=== PATIENT | male | born 1950 | race Caucasian/White ===

== ENCOUNTER 2023-03-03 20:32 | Inpatient (IN) | payer OTHER ==
[~2023-03-03 20:32] MED LIST: Iopamidol-370 76% 500 ML MDV (1 ML CHARGE) ONE
[2023-03-03] MEDS ORDERED: CEFAZOLIN 2 GM VIAL ONE (20:40)
[2023-03-03] MEDS ORDERED: Boostrix 0.5 ML (Tdap) VIAL (>/=7 yrs of age) ONE (20:40)
[2023-03-03] MEDS ORDERED: Sodium Chloride 0.9% 100 ML ONE (20:41)
[2023-03-03] MEDS ORDERED: fentaNYL 50 mcg/mL 1 mL Vial ONE (20:51)
[2023-03-03] MEDS ORDERED: KETAMINE 100 MG/ML (5ML VIAL) ONE (20:54)
[2023-03-03 21:16] LABS: #Basophils 0.1 thou/uL (0.0-0.2); #Eosinphils 0.5 thou/uL (0.0-0.7); #Monocytes 0.7 thou/uL (0.11-0.59); #Neutrophils 4.6 thou/uL (1.40-6.50); %Basophils 0.7 % (0.0-1.0); %Eosinophils 6.3 % (0.0-10.0); %Lymphocytes 26.2 % (21.0-51.0); %Monocytes 8.8 % (0.0-10.0); Hematocrit 41.1 % (42.0-52.0); Hemoglobin 13.8 g/dL (14.0-18.0); Mean Corpuscular HGB CONC 33.6 g/dL (32.0-36.0); Mean Corpuscular Hemoglobin 32.3 pg (27.0-31.0); Mean Corpuscular Volume 96.3 fl (78.0-98.0); Mean Platelet Volume 9.9 fL (7.4-10.4); Platelet Count 276 10x3/uL (130-400); RBC Distribution Width 12.7 % (11.5-14.5); Red Blood Cell (RBC) Count 4.27 mill/uL (4.70-6.10); White Blood Cell (WBC) Count 8.1 10x3/uL (4.8-10.8)
[2023-03-03 22:20] LABS: ALT (SGPT) 42 U/L (8-55); AST (SGOT) 58 U/L (5-34); Albumin 4.1 g/dL (3.4-4.8); Alkaline Phosphatase 98 U/L (40-110); Anion Gap 20 mmol/L (10-20); BUN (Urea Nitrogen) 23 mg/dL (8.4-25.7); Bilirubin, Total 0.4 mg/dL (0.2-1.2); Calc. Creatinine Clearance 0 mL/min (70-130); Calcium 8.6 mg/dL (7.8-10.44); Carbon Dioxide 17 mmol/L (23-31); Chloride 105 mmol/L (98-107); Estimated GFR 71; Globulin 2.6 g/dL (2.4-3.5); Glucose 158 mg/dL (83-110); Potassium 4.2 mmol/L (3.5-5.1); Protein, Total 6.7 g/dL (5.8-8.1); Sodium 138 mmol/L (136-145)
[2023-03-03] MEDS ORDERED: Glucagon 1 MG/ML KIT IM PRN ×2 (22:33→22:42)
[2023-03-03] MEDS ORDERED: hydrALAZINE 20 MG/ML VIAL SLOW IVP PRN (22:33)
[2023-03-03] MEDS ORDERED: Dextrose 5% in Water 1,000 ML IV PRN ×2 (22:33→22:42)
[2023-03-03] MEDS ORDERED: Dextrose 50% Abboject 50 ML SYRINGE SLOW IVP PRN ×2 (22:33→22:42)
[2023-03-03] MEDS ORDERED: Morphine 4 MG/ML VIAL SLOW IVP PRN (22:33)
[2023-03-03 23:01] LABS: Bilirubin Negative (Negative); Blood, Urine 2+ (Negative); Clarity Clear (Clear); Glucose, Urine (Dipstick) Normal (Negative); Ketone, Urine 20 mg/dL (Negative); Leukocyte Negative Leu/uL (Negative); Nitrite Negative (Negative); Protein, Urine (Dipstick) 100 mg/dL (Neg-Trace); Specific Gravity, Urine 1.023 (1.002-1.036); Squamous Epithelial 0-3 HPF (0-3); Urobilinogen Normal mg/dL (Less than 2); pH, Urine 5.5 (5.0-9.0)
[2023-03-03 23:02] LABS: Bacteria/HPF 1+ HPF (None Seen)
[2023-03-03] MEDS ORDERED: Propofol 1,000 MG/100 ML VIAL IV ONE (23:09)
[2023-03-04] MEDS: NOREPINEPHRINE 8 MG/250 ML-D5W 250 ML ONE (01:00)
[2023-03-04] MEDS: NOREPINEPHRINE 8 MG/250 ML-D5W 250 ML IVPB SCH (01:00)
[2023-03-04] MEDS: Sodium Chloride 0.9% 500 ML IV SCH ×2 (01:01→04:11)
[2023-03-04 01:04] LABS: Lactic Acid 2.1 mmol/L (0.5-2.2)
[2023-03-04] MEDS: Sodium Chloride 0.9% 1,000 ML IV SCH ×2 (01:52→03:51)
[2023-03-04] MEDS: TETANUS, DIPHTHERIA TOX,ADULT (TDVAX) 0.5 ML VIAL IM ONE (01:53)
[2023-03-04] MEDS: Fentanyl CADD 100 ML IV SCH (03:47)
[2023-03-04 04:19] LABS: Manual Diff?? YES; Mean Corpuscular HGB CONC 32.9 g/dL (32.0-36.0); Mean Corpuscular Hemoglobin 32.2 pg (27.0-31.0); Mean Platelet Volume 9.7 fL (7.4-10.4); RBC Distribution Width 13.2 % (11.5-14.5); Red Blood Cell (RBC) Count 2.95 mill/uL (4.70-6.10); White Blood Cell (WBC) Count 7.2 10x3/uL (4.8-10.8)
[2023-03-04] MEDS ORDERED: Ventilator Sedation Protocol 1 EACH FS SCH (04:45)
[2023-03-04 04:46] LABS: ALT (SGPT) 34 U/L (8-55); AST (SGOT) 68 U/L (5-34); Albumin 2.8 g/dL (3.4-4.8); Alkaline Phosphatase 63 U/L (40-110); Anion Gap 13 mmol/L (10-20); BUN (Urea Nitrogen) 23 mg/dL (8.4-25.7); Bilirubin, Total 0.4 mg/dL (0.2-1.2); Calc. Creatinine Clearance 51 mL/min (70-130); Calcium 7.6 mg/dL (7.8-10.44); Carbon Dioxide 19 mmol/L (23-31); Chloride 111 mmol/L (98-107); Estimated GFR 67; Glucose 136 mg/dL (83-110); Potassium 3.4 mmol/L (3.5-5.1); Protein, Total 4.8 g/dL (5.8-8.1); Sodium 140 mmol/L (136-145)
[2023-03-04] MEDS ORDERED: DISCONTINUE PREVIOUS NARCOTIC PAIN MEDICATIONS AND BENZODIAZEPINES FS SCH (05:00)
[2023-03-04] MEDS ORDERED: Fentanyl BOLUS 250 ML IVPB PRN (05:00)
[2023-03-04] MEDS ORDERED: Propofol BOLUS 1,000 MG/100 ML VIAL IV PRN (05:00)
[2023-03-04 06:01] LABS: Delete Auto Diff?? YES; Hematocrit 28.9 % (42.0-52.0); Hemoglobin 9.5 g/dL (14.0-18.0); Platelet Count 161 10x3/uL (130-400)
[2023-03-04] MEDS ORDERED: Albumin 25% 25 GM (100 mL) BOT IVPB SCH (06:30)
[2023-03-04] MEDS ORDERED: Electrolyte Replacement Protocol 1 EACH FS SCH (06:30)
[2023-03-04] MEDS ORDERED: Electrolyte Replacement Protocol FS PRN (06:45)
[2023-03-04 07:06] LABS: Anisocytosis SLIGHT = 6-15 cells HPF (0-5); Band 26 % (5-11); Burr Cells SLIGHT = 2-5 cells HPF (0-1); CellaVision Operator ID LAB.JMM; Large Platelets 12.1 % (0-5); Lymphocytes 10 % (21-51); Monocytes 12 % (0-10); Neutrophil 51 % (42-75); Platelet Adequacy Comment Platelets Normal; Poikilocytosis SLIGHT = 6-15 cells HPF (0-5); Polychromasia SLIGHT = 2-3 cells HPF (0-2); Smudge Cells 13.1 %; Total Cell Count 99
[2023-03-04 07:27] LABS: Actual Bicarbonate (HCO3a) 18.3 mEq/L (22-28); Base Excess (BEa) -5.4 mEq/L (-2.0 to +3.0); Calcium, Ionized (arterial) 1.12 mmol/L (1.12-1.30); Carboxyhemoglobin (COHb) 0.8 gm% (0.0-3.0); Hematocrit-ABG 26 % (42.0-52.0); Hemoglobin (Hb) 8.8 g/dL (14.0-18.0); O2 Tension (PaO2), arterial 148.3 mmHg (> 70.0); Potassium - ABG Lab 3.51 mmol/L (3.70-5.30); pH, Arterial 7.418 (7.35-7.45)
[2023-03-04] MEDS: Famotidine/PF 20 mg/2ml Vial SLOW IVP SCH (08:18)
[2023-03-04] MEDS: Enoxaparin 40 MG (0.4 mL) SYRINGE SC SCH (08:18)
[2023-03-04] MEDS: Potassium Chloride 40 MEQ in Premix 1 BAG IVPB SCH (08:18)
[2023-03-04] MEDS: FLU VACC QS2023(65UP)/MF59C/PF 60 MCG/0.5 ML SYRINGE IM ONE (08:19)
[2023-03-04] MEDS: CEFAZOLIN 2 GM in Sodium Chloride 0.9% 100 ML IVPB SCH (11:18)
[2023-03-04] MEDS: CEFAZOLIN IVPB SCH (11:19)
[2023-03-04] MEDS ORDERED: PROPOFOL 20 ML ONE (11:20)
[2023-03-04] MEDS ORDERED: PHENYLEPHRINE-NS 100 MCG/ML 10 ML SYRINGE ONE (11:20)
[2023-03-04] MEDS ORDERED: Midazolam HCl 2 mg/2 ml Vial ONE (11:20)
[2023-03-04] MEDS ORDERED: Rocuronium Bromide 10 MG/ML (10ML VIAL) ONE (11:20)
[2023-03-04] MEDS: Propofol 1,000 MG/100 ML VIAL IV PRN (13:40)
[2023-03-04 15:28] LABS: Potassium 4.3 mmol/L (3.5-5.1)
[2023-03-04] MEDS: Lorazepam 2 MG/ML VIAL SLOW IVP PRN (20:05)
[2023-03-04 20:18] LABS: Hematocrit 27.9 % (42.0-52.0); Hemoglobin 9.4 g/dL (14.0-18.0); Mean Corpuscular HGB CONC 33.7 g/dL (32.0-36.0); Mean Corpuscular Hemoglobin 30.9 pg (27.0-31.0); Mean Platelet Volume 9.9 fL (7.4-10.4); Platelet Count 138 10x3/uL (130-400); RBC Distribution Width 15.9 % (11.5-14.5); Red Blood Cell (RBC) Count 3.04 mill/uL (4.70-6.10); White Blood Cell (WBC) Count 6.1 10x3/uL (4.8-10.8)
[2023-03-04 20:24] LABS: Mean Corpuscular Volume 91.8 fl (78.0-98.0)
[2023-03-05 04:28] LABS: Hematocrit 26.8 % (42.0-52.0); Hemoglobin 8.9 g/dL (14.0-18.0); Manual Diff?? YES; Mean Corpuscular HGB CONC 33.2 g/dL (32.0-36.0); Mean Corpuscular Volume 93.4 fl (78.0-98.0); Mean Platelet Volume 9.9 fL (7.4-10.4); Platelet Count 134 10x3/uL (130-400); RBC Distribution Width 16.1 % (11.5-14.5); Red Blood Cell (RBC) Count 2.87 mill/uL (4.70-6.10); White Blood Cell (WBC) Count 6.5 10x3/uL (4.8-10.8)
[2023-03-05 04:46] LABS: Delete Auto Diff?? YES
[2023-03-05 04:56] LABS: ALT (SGPT) 25 U/L (8-55); AST (SGOT) 61 U/L (5-34); Albumin 2.4 g/dL (3.4-4.8); Alkaline Phosphatase 54 U/L (40-110); Anion Gap 12 mmol/L (10-20); BUN (Urea Nitrogen) 15 mg/dL (8.4-25.7); Bilirubin, Total 0.4 mg/dL (0.2-1.2); Calc. Creatinine Clearance 68 mL/min (70-130); Calcium 7.6 mg/dL (7.8-10.44); Carbon Dioxide 18 mmol/L (23-31); Chloride 115 mmol/L (98-107); Estimated GFR 92; Globulin 1.9 g/dL (2.4-3.5); Glucose 110 mg/dL (83-110); Magnesium 1.7 mg/dL (1.6-2.6); Phosphorus 2.4 mg/dL (2.3-4.7); Potassium 3.6 mmol/L (3.5-5.1); Protein, Total 4.3 g/dL (5.8-8.1); Sodium 141 mmol/L (136-145)
[2023-03-05] MEDS: Albumin 25% 25 GM (100 mL) BOT IVPB SCH (05:38)
[2023-03-05] MEDS: Magnesium 2 GM/50 ML(in water) 2 GM in Premix 1 BAG IVPB SCH (05:44)
[2023-03-05 05:58] LABS: Band 6 % (5-11); Burr Cells SLIGHT = 2-5 cells HPF (0-1); CellaVision Operator ID lab.abc; Eosinophils 3 % (0-10); Large Platelets 4.3 % (0-5); Lymphocytes 14 % (21-51); Monocytes 7 % (0-10); Neutrophil 69 % (42-75); Platelet Adequacy Comment Platelets Decreased; Polychromasia SLIGHT = 2-3 cells HPF (0-2); Smudge Cells 10.4 %; Total Cell Count 115
[2023-03-05 07:04] LABS: Actual Bicarbonate (HCO3a) 17.1 mEq/L (22-28); Base Excess (BEa) -6.9 mEq/L (-2.0 to +3.0); CO2 Tension 28.7 mmHg (35.0-45.0); Calcium, Ionized (arterial) 1.16 mmol/L (1.12-1.30); Carboxyhemoglobin (COHb) 0.9 gm% (0.0-3.0); Hematocrit-ABG 26 % (42.0-52.0); Hemoglobin (Hb) 8.8 g/dL (14.0-18.0); O2 Tension (PaO2), arterial 104.3 mmHg (> 70.0); Potassium - ABG Lab 3.52 mmol/L (3.70-5.30); pH, Arterial 7.393 (7.35-7.45)
[2023-03-05 07:07] LABS: Puncture Site RRA
[2023-03-05 07:08] LABS: ALV-art Gradient 73.725 mmHg (0-20)
[2023-03-05] MEDS: Aspirin 325 MG TAB PO SCH (08:30)
[2023-03-05] MEDS: Clopidogrel Bisulfate 75 MG TAB PO SCH (08:31)
[2023-03-05 12:42] LABS: Hematocrit 29.2 % (42.0-52.0); Hemoglobin 9.8 g/dL (14.0-18.0); Platelet Count 97 10x3/uL (130-400)
[2023-03-06 05:50] LABS: Hematocrit 24.3 % (42.0-52.0); Manual Diff?? YES; Mean Corpuscular HGB CONC 32.9 g/dL (32.0-36.0); Mean Corpuscular Hemoglobin 30.8 pg (27.0-31.0); Mean Corpuscular Volume 93.5 fl (78.0-98.0); Platelet Count 95 10x3/uL (130-400); White Blood Cell (WBC) Count 4.6 10x3/uL (4.8-10.8)
[2023-03-06 06:14] LABS: Anion Gap 9 mmol/L (10-20); BUN (Urea Nitrogen) 10 mg/dL (8.4-25.7); Calc. Creatinine Clearance 86 mL/min (70-130); Carbon Dioxide 20 mmol/L (23-31); Chloride 115 mmol/L (98-107); Estimated GFR 96; Glucose 93 mg/dL (83-110); Potassium 3.2 mmol/L (3.5-5.1); Sodium 141 mmol/L (136-145)
[2023-03-06 06:38] LABS: Delete Auto Diff?? YES
[2023-03-06 07:08] LABS: Anisocytosis SLIGHT = 6-15 cells HPF (0-5); Band 15 % (5-11); Burr Cells SLIGHT = 2-5 cells HPF (0-1); CellaVision Operator ID LAB.JMM; Eosinophils 3 % (0-10); Lymphocytes 14 % (21-51); Macrocytosis SLIGHT = 6-15 cells HPF (0-5); Monocytes 6 % (0-10); Neutrophil 61 % (42-75); Platelet Adequacy Comment Platelets Decreased; Polychromasia SLIGHT = 2-3 cells HPF (0-2); Total Cell Count 100
[2023-03-06] MEDS ORDERED: Rocuronium Bromide 10 MG/ML (10ML VIAL) ONE ×2 (07:24→13:58)
[2023-03-06] MEDS ORDERED: PROPOFOL 20 ML ONE (07:25)
[2023-03-06] MEDS ORDERED: Fentanyl 250 MCG/5 ML VIAL ONE (07:25)
[2023-03-06] MEDS ORDERED: Potassium Chloride 20 MEQ (100 mL) BAG ONE (07:34)
[2023-03-06] MEDS ORDERED: Albumin 5% 500 ML ONE ×2 (07:34→12:56)
[2023-03-06] MEDS ORDERED: Midazolam HCl 2 mg/2 ml Vial ONE (07:43)
[2023-03-06] MEDS: CEFAZOLIN 2 GM in Sodium Chloride 0.9% 100 ML IVPB SCH (07:48)
[2023-03-06] MEDS: Potassium Chloride 20 MEQ TAB PER TUBE SCH (09:58)
[2023-03-06] MEDS ORDERED: CEFAZOLIN 1 GM VIAL ONE (11:51)
[2023-03-06] MEDS: Potassium Bicarbonate/Cit Ac 20 MEQ TAB PER TUBE SCH (14:41)
[2023-03-06] MEDS: Potassium Chloride 20 MEQ in Lactated Ringer's 1,000 ML IV SCH (14:44)
[2023-03-06 17:47] LABS: Hematocrit 24.8 % (42.0-52.0); Hemoglobin 8.2 g/dL (14.0-18.0); Manual Diff?? YES; Mean Corpuscular HGB CONC 33.1 g/dL (32.0-36.0); Mean Corpuscular Hemoglobin 30.4 pg (27.0-31.0); Mean Corpuscular Volume 91.9 fl (78.0-98.0); Mean Platelet Volume 9.6 fL (7.4-10.4); Platelet Count 122 10x3/uL (130-400); RBC Distribution Width 16.2 % (11.5-14.5); White Blood Cell (WBC) Count 4.6 10x3/uL (4.8-10.8)
[2023-03-06 18:04] LABS: Delete Auto Diff?? YES
[2023-03-06 18:05] LABS: Anion Gap 13 mmol/L (10-20); BUN (Urea Nitrogen) 8 mg/dL (8.4-25.7); Calc. Creatinine Clearance 86 mL/min (70-130); Carbon Dioxide 19 mmol/L (23-31); Chloride 113 mmol/L (98-107); Estimated GFR 96; Glucose 117 mg/dL (83-110); Potassium 4.4 mmol/L (3.5-5.1); Sodium 141 mmol/L (136-145)
[2023-03-06 18:32] LABS: Band 14 % (5-11); CellaVision Operator ID LAB.KB; Eosinophils 1 % (0-10); Large Platelets 4.8 % (0-5); Lymphocytes 8 % (21-51); Monocytes 12 % (0-10); Neutrophil 64 % (42-75); Ovalocytes SLIGHT = 2-5 cells HPF (0-1); Platelet Adequacy Comment Platelets Decreased; Polychromasia SLIGHT = 2-3 cells HPF (0-2); Smudge Cells 21.2 %; Total Cell Count 104
[2023-03-06] MEDS: Morphine 2 MG/ML VIAL SLOW IVP PRN (20:22)
[2023-03-06] MEDS: Acetaminophen 650 MG/20.3 ML UDCUP PER TUBE PRN (21:02)
[2023-03-07 05:58] LABS: Hematocrit 24.7 % (42.0-52.0); Hemoglobin 8.3 g/dL (14.0-18.0); Manual Diff?? YES; Mean Corpuscular HGB CONC 33.6 g/dL (32.0-36.0); Mean Corpuscular Hemoglobin 30.7 pg (27.0-31.0); Mean Corpuscular Volume 91.5 fl (78.0-98.0); Mean Platelet Volume 9.5 fL (7.4-10.4); Platelet Count 137 10x3/uL (130-400); RBC Distribution Width 16.2 % (11.5-14.5)
[2023-03-07 06:06] LABS: Delete Auto Diff?? YES
[2023-03-07 06:25] LABS: Anion Gap 13 mmol/L (10-20); BUN (Urea Nitrogen) 10 mg/dL (8.4-25.7); Calc. Creatinine Clearance 82 mL/min (70-130); Calcium 8.1 mg/dL (7.8-10.44); Carbon Dioxide 21 mmol/L (23-31); Chloride 114 mmol/L (98-107); Estimated GFR 95; Glucose 122 mg/dL (83-110); Potassium 3.6 mmol/L (3.5-5.1); Sodium 144 mmol/L (136-145)
[2023-03-07] MEDS: Ondansetron PF 4 MG/2 ML Vial IVP PRN (06:31)
[2023-03-07 06:33] LABS: Band 18 % (5-11); CellaVision Operator ID lab.abc; Eosinophils 2 % (0-10); Lymphocytes 2 % (21-51); Monocytes 14 % (0-10); Neutrophil 62 % (42-75); Platelet Adequacy Comment Platelets Normal; Polychromasia SLIGHT = 2-3 cells HPF (0-2); RBC Morphology Within Normal Limits; Reactive Lymphocytes 1 % (0-10); Smudge Cells 9.9 %; Total Cell Count 101
[2023-03-07] MEDS: Cefepime 2 GM in Sodium Chloride 0.9% 100 ML IVPB SCH (09:57)
[2023-03-07] MEDS: guaiFENesin 200 MG TAB PO SCH (14:11)
[2023-03-07] MEDS: Albuterol 2.5 MG (3 mL) NEB NEB SCH (14:28)
[2023-03-07] MEDS ORDERED: guaiFENesin ER 600 MG TAB PO SCH (21:00)
[2023-03-08 04:56] LABS: Hematocrit 22.9 % (42.0-52.0); Hemoglobin 7.5 g/dL (14.0-18.0); Manual Diff?? YES; Mean Corpuscular HGB CONC 32.8 g/dL (32.0-36.0); Mean Corpuscular Hemoglobin 30.1 pg (27.0-31.0); Platelet Count 155 10x3/uL (130-400); RBC Distribution Width 15.8 % (11.5-14.5); Red Blood Cell (RBC) Count 2.49 mill/uL (4.70-6.10); White Blood Cell (WBC) Count 4.4 10x3/uL (4.8-10.8)
[2023-03-08 05:08] LABS: Delete Auto Diff?? YES
[2023-03-08 05:21] LABS: Anion Gap 12 mmol/L (10-20); BUN (Urea Nitrogen) 11 mg/dL (8.4-25.7); Calc. Creatinine Clearance 92 mL/min (70-130); Calcium 8.1 mg/dL (7.8-10.44); Carbon Dioxide 23 mmol/L (23-31); Chloride 112 mmol/L (98-107); Estimated GFR 96; Glucose 113 mg/dL (83-110); Potassium 3.5 mmol/L (3.5-5.1); Sodium 143 mmol/L (136-145)
[2023-03-08 06:30] LABS: Anisocytosis SLIGHT = 6-15 cells HPF (0-5); Band 29 % (5-11); CellaVision Operator ID LAB.JMM; Eosinophils 2 % (0-10); Large Platelets 11.1 % (0-5); Lymphocytes 4 % (21-51); Monocytes 4 % (0-10); Myelocyte 1 % (0-0); Neutrophil 60 % (42-75); Platelet Adequacy Comment Platelets Normal; Polychromasia SLIGHT = 2-3 cells HPF (0-2); Smudge Cells 10.1 %; Total Cell Count 99
[2023-03-08] MEDS ORDERED: Rocuronium Bromide 10 MG/ML (10ML VIAL) ONE (12:22)
[2023-03-08] MEDS ORDERED: Fentanyl 250 MCG/5 ML VIAL ONE (12:22)
[2023-03-08] MEDS ORDERED: Vancomycin 1 GM in Sodium Chloride 0.9% 250 ML 250 ML IVPB SCH ×2 (13:12→21:00)
[2023-03-08] MEDS ORDERED: PROPOFOL 20 ML ONE (13:44)
[2023-03-08] MEDS: Vancomycin (BATCH) 1.5 GM in Premix 1 BAG IVPB SCH (15:05)
[2023-03-08] MEDS: Furosemide 40 MG (4 mL) VIAL SLOW IVP SCH (15:14)
[2023-03-08] MEDS: Potassium Chloride 20 MEQ in Lactated Ringer's 1,000 ML IV SCH (22:08)
[2023-03-09] MEDS: Vancomycin 1 GM in Premix 1 BAG IVPB SCH (00:27)
[2023-03-09 04:50] LABS: Hematocrit 19.6 % (42.0-52.0); Hemoglobin 6.5 g/dL (14.0-18.0); Manual Diff?? YES; Mean Corpuscular HGB CONC 33.2 g/dL (32.0-36.0); Mean Corpuscular Hemoglobin 30.5 pg (27.0-31.0); Mean Platelet Volume 10.3 fL (7.4-10.4); Platelet Count 164 10x3/uL (130-400); RBC Distribution Width 15.4 % (11.5-14.5); Red Blood Cell (RBC) Count 2.13 mill/uL (4.70-6.10); White Blood Cell (WBC) Count 2.3 10x3/uL (4.8-10.8)
[2023-03-09 04:55] LABS: Delete Auto Diff?? YES
[2023-03-09 04:59] LABS: Anion Gap 11 mmol/L (10-20); BUN (Urea Nitrogen) 17 mg/dL (8.4-25.7); Calc. Creatinine Clearance 92 mL/min (70-130); Calcium 7.9 mg/dL (7.8-10.44); Carbon Dioxide 25 mmol/L (23-31); Chloride 109 mmol/L (98-107); Estimated GFR 94; Glucose 130 mg/dL (83-110); Potassium 3.3 mmol/L (3.5-5.1); Sodium 142 mmol/L (136-145)
[2023-03-09] MEDS: Potassium Chloride 20 MEQ in Premix 1 BAG IVPB SCH (06:14)
[2023-03-09 06:27] LABS: Anisocytosis SLIGHT = 6-15 cells HPF (0-5); Band 17 % (5-11); CellaVision Operator ID lab.sh2; Dohle Bodies SLIGHT; Eosinophils 1 % (0-10); Hypochromia SLIGHT = 6-15 cells HPF (0-5); Large Platelets 14.6 % (0-5); Lymphocytes 16 % (21-51); Monocytes 9 % (0-10); Neutrophil 57 % (42-75); Ovalocytes SLIGHT = 2-5 cells HPF (0-1); Platelet Adequacy Comment Platelets Normal; Polychromasia MODERATE = 3-4 cells HPF (0-2); Reactive Lymphocytes 1 % (0-10); Smudge Cells 13.6 %; Total Cell Count 103
[2023-03-09 07:28] LABS: Actual Bicarbonate (HCO3a) 23.8 mEq/L (22-28); Base Excess (BEa) 1.1 mEq/L (-2.0 to +3.0); Calcium, Ionized (arterial) 1.05 mmol/L (1.12-1.30); Carboxyhemoglobin (COHb) 0.8 gm% (0.0-3.0); Hematocrit-ABG 24 % (42.0-52.0); Hemoglobin (Hb) 8.1 g/dL (14.0-18.0); O2 Tension (PaO2), arterial 80.4 mmHg (> 70.0); Potassium - ABG Lab 3.83 mmol/L (3.70-5.30); pH, Arterial 7.517 (7.35-7.45)
[2023-03-09 07:30] LABS: Puncture Site Arterial Line
[2023-03-09] MEDS ORDERED: Dexmedetomidine In 0.9 % NaCl 100 ML IVPB SCH (08:00)
[2023-03-09 08:28] LABS: Magnesium 1.8 mg/dL (1.6-2.6); Phosphorus 2.6 mg/dL (2.3-4.7)
[2023-03-09] MEDS: Dexmedetomidine 400 MCG, Admixture Fee 1 EACH in Sodium Chloride 0.9% 96 ML IVPB SCH (08:34)
[2023-03-09] MEDS: Magnesium 2 GM/50 ML(in water) 2 GM in Premix 1 BAG IVPB SCH (09:05)
[2023-03-09] MEDS: Furosemide 40 MG (4 mL) VIAL SLOW IVP SCH (10:39)
[2023-03-09] MEDS: Lactulose 20 GM (30 mL) UDCUP PER TUBE SCH (10:41)
[2023-03-09] MEDS: Rosuvastatin 5 MG TAB PO SCH (20:46)
[2023-03-10 00:29] LABS: Vancomycin, Trough 11.7 ug/mL
[2023-03-10] MEDS: Vancomycin (BATCH) 1.25 GM in Premix 1 BAG IVPB SCH (01:36)
[2023-03-10 04:37] LABS: Hematocrit 22.5 % (42.0-52.0); Hemoglobin 7.3 g/dL (14.0-18.0); Manual Diff?? YES; Mean Corpuscular HGB CONC 32.4 g/dL (32.0-36.0); Mean Corpuscular Hemoglobin 29.8 pg (27.0-31.0); Mean Corpuscular Volume 91.8 fl (78.0-98.0); Mean Platelet Volume 10.1 fL (7.4-10.4); Platelet Count 220 10x3/uL (130-400); RBC Distribution Width 15.2 % (11.5-14.5); Red Blood Cell (RBC) Count 2.45 mill/uL (4.70-6.10)
[2023-03-10 04:42] LABS: Delete Auto Diff?? YES
[2023-03-10 05:02] LABS: ALT (SGPT) 37 U/L (8-55); AST (SGOT) 71 U/L (5-34); Albumin 2.5 g/dL (3.4-4.8); Alkaline Phosphatase 112 U/L (40-110); Anion Gap 14 mmol/L (10-20); BUN (Urea Nitrogen) 20 mg/dL (8.4-25.7); Bilirubin, Total 1.1 mg/dL (0.2-1.2); Calc. Creatinine Clearance 95 mL/min (70-130); Calcium 8.2 mg/dL (7.8-10.44); Carbon Dioxide 26 mmol/L (23-31); Chloride 108 mmol/L (98-107); Estimated GFR 95; Globulin 2.6 g/dL (2.4-3.5); Glucose 117 mg/dL (83-110); Potassium 3.8 mmol/L (3.5-5.1); Protein, Total 5.1 g/dL (5.8-8.1); Sodium 144 mmol/L (136-145)
[2023-03-10 05:04] LABS: Band 40 % (5-11); Blast 1 % (0-0); CellaVision Operator ID LAB.CLH1; Eosinophils 2 % (0-10); Hypochromia SLIGHT = 6-15 cells HPF (0-5); Large Platelets 21.2 % (0-5); Lymphocytes 8 % (21-51); Monocytes 3 % (0-10); Neutrophil 44 % (42-75); Platelet Adequacy Comment Platelets Normal; Polychromasia SLIGHT = 2-3 cells HPF (0-2); Reactive Lymphocytes 2 % (0-10); Total Cell Count 104
[2023-03-10] MEDS: Levothyroxine 100 MCG SDV SLOW IVP SCH (06:30)
[2023-03-10 07:45] LABS: Actual Bicarbonate (HCO3a) 26.2 mEq/L (22-28); Base Excess (BEa) 3.4 mEq/L (-2.0 to +3.0); CO2 Tension 32.4 mmHg (35.0-45.0); Carboxyhemoglobin (COHb) 1.2 gm% (0.0-3.0); Hematocrit-ABG 26 % (42.0-52.0); Hemoglobin (Hb) 8.9 g/dL (14.0-18.0); Potassium - ABG Lab 3.76 mmol/L (3.70-5.30); pH, Arterial 7.525 (7.35-7.45)
[2023-03-10 07:57] LABS: O2 Tension (PaO2), arterial 59.7 mmHg (> 70.0); Puncture Site Arterial Line
[2023-03-10] MEDS: Furosemide 40 MG (4 mL) VIAL SLOW IVP SCH (09:09)
[2023-03-11 04:42] LABS: Hematocrit 24.8 % (42.0-52.0); Manual Diff?? YES; Mean Corpuscular HGB CONC 32.3 g/dL (32.0-36.0); Mean Corpuscular Hemoglobin 30.1 pg (27.0-31.0); Mean Corpuscular Volume 93.2 fl (78.0-98.0); Platelet Count 305 10x3/uL (130-400); RBC Distribution Width 15.2 % (11.5-14.5); Red Blood Cell (RBC) Count 2.66 mill/uL (4.70-6.10); White Blood Cell (WBC) Count 9.6 10x3/uL (4.8-10.8)
[2023-03-11 04:53] LABS: Delete Auto Diff?? YES
[2023-03-11 04:59] LABS: ALT (SGPT) 59 U/L (8-55); AST (SGOT) 99 U/L (5-34); Albumin 2.8 g/dL (3.4-4.8); Alkaline Phosphatase 142 U/L (40-110); Anion Gap 14 mmol/L (10-20); BUN (Urea Nitrogen) 28 mg/dL (8.4-25.7); Calc. Creatinine Clearance 92 mL/min (70-130); Calcium 8.5 mg/dL (7.8-10.44); Carbon Dioxide 32 mmol/L (23-31); Chloride 104 mmol/L (98-107); Estimated GFR 93; Globulin 2.9 g/dL (2.4-3.5); Glucose 118 mg/dL (83-110); Potassium 3.2 mmol/L (3.5-5.1); Protein, Total 5.7 g/dL (5.8-8.1); Sodium 147 mmol/L (136-145)
[2023-03-11 05:19] LABS: Anisocytosis SLIGHT = 6-15 cells HPF (0-5); Band 6 % (5-11); CellaVision Operator ID lab.sh2; Eosinophils 6 % (0-10); Hypochromia SLIGHT = 6-15 cells HPF (0-5); Large Platelets 5.1 % (0-5); Lymphocytes 3 % (21-51); Macrocytosis SLIGHT = 6-15 cells HPF (0-5); Monocytes 2 % (0-10); Neutrophil 83 % (42-75); Nucleated RBC (Manual Ct) 1 % (0); Ovalocytes SLIGHT = 2-5 cells HPF (0-1); Platelet Adequacy Comment Platelets Normal; Polychromasia SLIGHT = 2-3 cells HPF (0-2); Smudge Cells 15.2 %; Target Cells SLIGHT = 2-5 cells HPF (0-1); Total Cell Count 99
[2023-03-11 07:36] LABS: Actual Bicarbonate (HCO3a) 31.4 mEq/L (22-28); Base Excess (BEa) 8.4 mEq/L (-2.0 to +3.0); CO2 Tension 36.5 mmHg (35.0-45.0); Calcium, Ionized (arterial) 1.11 mmol/L (1.12-1.30); Carboxyhemoglobin (COHb) 1.8 gm% (0.0-3.0); Hematocrit-ABG 24 % (42.0-52.0); Potassium - ABG Lab 3.02 mmol/L (3.70-5.30); pH, Arterial 7.552 (7.35-7.45)
[2023-03-11 07:37] LABS: ALV-art Gradient 187.275 mmHg (0-20); O2 Tension (PaO2), arterial 52.3 mmHg (> 70.0); Puncture Site RBA
[2023-03-11] MEDS: Potassium Chloride 20 MEQ in Premix 1 BAG IVPB SCH (07:49)
[2023-03-11 13:11] LABS: Vancomycin, Trough 15.6 ug/mL
[2023-03-11] MEDS: Ipratropium/Albuterol 3 ML NEB NEB SCH (14:36)
[2023-03-11 16:06] LABS: Potassium 3.3 mmol/L (3.5-5.1)
[2023-03-11] MEDS: Potassium Chloride 40 MEQ in Premix 1 BAG IVPB SCH (17:41)
[2023-03-11] MEDS: Acetylcysteine (MUCOMYST) 200 MG/ML (10 ML VIAL) NEB SCH (18:25)
[2023-03-11 23:18] LABS: Potassium 3.7 mmol/L (3.5-5.1)
[2023-03-12 04:28] LABS: Hematocrit 21.8 % (42.0-52.0); Hemoglobin 6.9 g/dL (14.0-18.0); Manual Diff?? YES; Mean Corpuscular HGB CONC 31.7 g/dL (32.0-36.0); Mean Corpuscular Hemoglobin 30.4 pg (27.0-31.0); Mean Platelet Volume 10.4 fL (7.4-10.4); Platelet Count 314 10x3/uL (130-400); RBC Distribution Width 15.7 % (11.5-14.5); Red Blood Cell (RBC) Count 2.27 mill/uL (4.70-6.10); White Blood Cell (WBC) Count 9.4 10x3/uL (4.8-10.8)
[2023-03-12 04:29] LABS: Delete Auto Diff?? YES
[2023-03-12 04:57] LABS: Band 12 % (5-11); CellaVision Operator ID LAB.CLH1; Eosinophils 1 % (0-10); Hypochromia SLIGHT = 6-15 cells HPF (0-5); Lymphocytes 4 % (21-51); Monocytes 4 % (0-10); Myelocyte 1 % (0-0); Neutrophil 75 % (42-75); Platelet Adequacy Comment Platelets Normal; Polychromasia MODERATE = 3-4 cells HPF (0-2); Promyelocytes 2 % (0-0); Total Cell Count 100
[2023-03-12 04:59] LABS: ALT (SGPT) 52 U/L (8-55); AST (SGOT) 65 U/L (5-34); Albumin 2.5 g/dL (3.4-4.8); Alkaline Phosphatase 118 U/L (40-110); BUN (Urea Nitrogen) 34 mg/dL (8.4-25.7); Bilirubin, Total 0.9 mg/dL (0.2-1.2); Calc. Creatinine Clearance 88 mL/min (70-130); Calcium 8.4 mg/dL (7.8-10.44); Carbon Dioxide 31 mmol/L (23-31); Estimated GFR 95; Globulin 2.6 g/dL (2.4-3.5); Glucose 124 mg/dL (83-110); Protein, Total 5.1 g/dL (5.8-8.1); Sodium 148 mmol/L (136-145)
[2023-03-12 05:05] LABS: Chloride 107 mmol/L (98-107)
[2023-03-12 05:06] LABS: Potassium 3.5 mmol/L (3.5-5.1)
[2023-03-12 05:08] LABS: Anion Gap 12 mmol/L (10-20)
[2023-03-12] MEDS: Potassium Chloride 20 MEQ in Premix 1 BAG IVPB SCH (06:41)
[2023-03-12 07:03] LABS: Actual Bicarbonate (HCO3a) 29.3 mEq/L (22-28); Base Excess (BEa) 6.2 mEq/L (-2.0 to +3.0); CO2 Tension 35.8 mmHg (35.0-45.0); Calcium, Ionized (arterial) 1.13 mmol/L (1.12-1.30); Carboxyhemoglobin (COHb) 1.4 gm% (0.0-3.0); Hematocrit-ABG 24 % (42.0-52.0); Potassium - ABG Lab 3.29 mmol/L (3.70-5.30); pH, Arterial 7.531 (7.35-7.45)
[2023-03-12 07:06] LABS: O2 Tension (PaO2), arterial 57.2 mmHg (> 70.0); Puncture Site RBA
[2023-03-12] MEDS: Dextrose 5% in Water 1,000 ML IV SCH (08:59)
[2023-03-13 04:15] LABS: Hematocrit 24.9 % (42.0-52.0); Hemoglobin 7.7 g/dL (14.0-18.0); Manual Diff?? YES; Mean Corpuscular HGB CONC 30.9 g/dL (32.0-36.0); Mean Corpuscular Hemoglobin 29.8 pg (27.0-31.0); Mean Corpuscular Volume 96.5 fl (78.0-98.0); Mean Platelet Volume 10.9 fL (7.4-10.4); Platelet Count 373 10x3/uL (130-400); RBC Distribution Width 15.6 % (11.5-14.5); Red Blood Cell (RBC) Count 2.58 mill/uL (4.70-6.10); White Blood Cell (WBC) Count 10.3 10x3/uL (4.8-10.8)
[2023-03-13 04:35] LABS: Delete Auto Diff?? YES
[2023-03-13 04:57] LABS: ALT (SGPT) 94 U/L (8-55); AST (SGOT) 149 U/L (5-34); Albumin 2.6 g/dL (3.4-4.8); Alkaline Phosphatase 137 U/L (40-110); Anion Gap 15 mmol/L (10-20); BUN (Urea Nitrogen) 38 mg/dL (8.4-25.7); Calc. Creatinine Clearance 82 mL/min (70-130); Calcium 8.7 mg/dL (7.8-10.44); Carbon Dioxide 31 mmol/L (23-31); Chloride 108 mmol/L (98-107); Estimated GFR 94; Globulin 2.8 g/dL (2.4-3.5); Glucose 111 mg/dL (83-110); Magnesium 2.2 mg/dL (1.6-2.6); Potassium 3.6 mmol/L (3.5-5.1); Protein, Total 5.4 g/dL (5.8-8.1); Sodium 150 mmol/L (136-145)
[2023-03-13 05:06] LABS: Anisocytosis SLIGHT = 6-15 cells HPF (0-5); Band 6 % (5-11); CellaVision Operator ID lab.sh2; Dohle Bodies SLIGHT; Hypochromia SLIGHT = 6-15 cells HPF (0-5); Large Platelets 16.7 % (0-5); Lymphocytes 1 % (21-51); Macrocytosis SLIGHT = 6-15 cells HPF (0-5); Monocytes 4 % (0-10); Neutrophil 89 % (42-75); Ovalocytes SLIGHT = 2-5 cells HPF (0-1); Platelet Adequacy Comment Platelets Normal; Polychromasia SLIGHT = 2-3 cells HPF (0-2); Smudge Cells 24.5 %; Total Cell Count 102; Toxic Granulation SLIGHT
[2023-03-13 05:35] LABS: Phosphorus 3.6 mg/dL (2.3-4.7)
[2023-03-13 07:46] LABS: Actual Bicarbonate (HCO3a) 27.3 mEq/L (22-28); Base Excess (BEa) 3.8 mEq/L (-2.0 to +3.0); CO2 Tension 36.7 mmHg (35.0-45.0); Calcium, Ionized (arterial) 1.14 mmol/L (1.12-1.30); Carboxyhemoglobin (COHb) 0.9 gm% (0.0-3.0); Hematocrit-ABG 30 % (42.0-52.0); Hemoglobin (Hb) 10.3 g/dL (14.0-18.0); O2 Tension (PaO2), arterial 67.5 mmHg (> 70.0); Potassium - ABG Lab 3.51 mmol/L (3.70-5.30); pH, Arterial 7.489 (7.35-7.45)
[2023-03-13 07:51] LABS: ALV-art Gradient 171.825 mmHg (0-20); Puncture Site RRA
[2023-03-13] MEDS ORDERED: Acetaminophen 650 MG Suppository PR PRN (08:13)
[2023-03-13] MEDS ORDERED: traMADol HCl 50 MG TAB PO PRN (10:40)
[2023-03-13] MEDS ORDERED: Docusate 100 MG CAP PO PRN (10:44)
[2023-03-13] MEDS ORDERED: Bisacodyl 5 MG TAB PO PRN (10:46)
[2023-03-13] MEDS: Gabapentin 100 MG CAP PO SCH (11:12)
[2023-03-13] MEDS: fentaNYL 50 mcg/hour Patch TD SCH (11:13)
[2023-03-13] MEDS: Acetaminophen 650 MG/20.3 ML UDCUP PER TUBE SCH (11:26)
[2023-03-14 04:45] LABS: Hematocrit 25.3 % (42.0-52.0); Hemoglobin 7.7 g/dL (14.0-18.0); Manual Diff?? YES; Mean Corpuscular HGB CONC 30.4 g/dL (32.0-36.0); Mean Corpuscular Volume 98.4 fl (78.0-98.0); Platelet Count 417 10x3/uL (130-400); RBC Distribution Width 15.8 % (11.5-14.5); Red Blood Cell (RBC) Count 2.57 mill/uL (4.70-6.10)
[2023-03-14 04:48] LABS: Delete Auto Diff?? YES
[2023-03-14 05:34] LABS: Anisocytosis SLIGHT = 6-15 cells HPF (0-5); Band 32 % (5-11); CellaVision Operator ID LAB.CLH1; Hypochromia SLIGHT = 6-15 cells HPF (0-5); Large Platelets 2.7 % (0-5); Lymphocytes 1 % (21-51); Metamyelocyte 1 % (0-0); Monocytes 14 % (0-10); Myelocyte 1 % (0-0); Neutrophil 49 % (42-75); Platelet Adequacy Comment Platelets Increased; Polychromasia MODERATE = 3-4 cells HPF (0-2); Promyelocytes 2 % (0-0); Total Cell Count 110
[2023-03-14] MEDS: Pantoprazole 40 MG VIAL IVP SCH (10:37)
[2023-03-14 10:53] LABS: ALT (SGPT) 76 U/L (8-55); AST (SGOT) 69 U/L (5-34); Albumin 2.8 g/dL (3.4-4.8); Alkaline Phosphatase 139 U/L (40-110); Anion Gap 11 mmol/L (10-20); BUN (Urea Nitrogen) 35 mg/dL (8.4-25.7); Calc. Creatinine Clearance 98 mL/min (70-130); Calcium 8.7 mg/dL (7.8-10.44); Carbon Dioxide 30 mmol/L (23-31); Chloride 110 mmol/L (98-107); Estimated GFR 98; Globulin 2.9 g/dL (2.4-3.5); Glucose 125 mg/dL (83-110); Potassium 3.4 mmol/L (3.5-5.1); Protein, Total 5.7 g/dL (5.8-8.1); Sodium 148 mmol/L (136-145)
[2023-03-14] MEDS: Potassium Chloride 40 MEQ in Premix 1 BAG IVPB SCH (11:35)
[2023-03-14] MEDS: Propofol 1,000 MG/100 ML VIAL IV ONE (15:30)
[2023-03-14] MEDS: Morphine 4 MG/ML VIAL SLOW IVP SCH (16:53)
[2023-03-14 18:17] LABS: Potassium 3.3 mmol/L (3.5-5.1)
[2023-03-14] MEDS: Acetylcysteine (MUCOMYST) 200 MG/ML (10 ML VIAL) NEB SCH (18:18)
[2023-03-14] MEDS ORDERED: Vecuronium 10 MG VIAL IVP PRN (20:05)
[2023-03-14] MEDS: Ketorolac Tromethamine 30 MG (1 mL) VIAL IVP SCH (20:21)
[2023-03-14] MEDS: GLYCOPYRROLATE/PF 0.2 MG/ML VIAL SLOW IVP PRN (22:22)
[2023-03-14] MEDS ORDERED: Furosemide 40 MG (4 mL) VIAL SLOW IVP SCH (23:15)
[2023-03-15 05:02] LABS: Hematocrit 26.3 % (42.0-52.0); Manual Diff?? YES; Mean Corpuscular HGB CONC 30.4 g/dL (32.0-36.0); Mean Corpuscular Hemoglobin 30.1 pg (27.0-31.0); Mean Corpuscular Volume 98.9 fl (78.0-98.0); Mean Platelet Volume 11.1 fL (7.4-10.4); RBC Distribution Width 15.8 % (11.5-14.5); Red Blood Cell (RBC) Count 2.66 mill/uL (4.70-6.10); White Blood Cell (WBC) Count 13.3 10x3/uL (4.8-10.8)
[2023-03-15 05:09] LABS: Delete Auto Diff?? YES; Platelet Count 528 10x3/uL (130-400)
[2023-03-15 05:34] LABS: ALT (SGPT) 66 U/L (8-55); AST (SGOT) 70 U/L (5-34); Albumin 2.5 g/dL (3.4-4.8); Alkaline Phosphatase 126 U/L (40-110); Anion Gap 13 mmol/L (10-20); BUN (Urea Nitrogen) 39 mg/dL (8.4-25.7); Bilirubin, Total 0.9 mg/dL (0.2-1.2); Calc. Creatinine Clearance 82 mL/min (70-130); Calcium 8.5 mg/dL (7.8-10.44); Carbon Dioxide 28 mmol/L (23-31); Chloride 112 mmol/L (98-107); Estimated GFR 93; Globulin 2.9 g/dL (2.4-3.5); Glucose 132 mg/dL (83-110); Potassium 3.5 mmol/L (3.5-5.1); Protein, Total 5.4 g/dL (5.8-8.1); Sodium 149 mmol/L (136-145)
[2023-03-15 06:25] LABS: Anisocytosis SLIGHT = 6-15 cells HPF (0-5); Band 12 % (5-11); CellaVision Operator ID lab.sh2; Hypochromia SLIGHT = 6-15 cells HPF (0-5); Lymphocytes 4 % (21-51); Macrocytosis SLIGHT = 6-15 cells HPF (0-5); Monocytes 3 % (0-10); Neutrophil 81 % (42-75); Ovalocytes SLIGHT = 2-5 cells HPF (0-1); Platelet Adequacy Comment Platelets Increased; Polychromasia MODERATE = 3-4 cells HPF (0-2); Total Cell Count 100
[2023-03-15 12:35] LABS: Vancomycin, Trough 19.3 ug/mL
[2023-03-15] MEDS: Potassium Phosphate 30 MMOL in Sodium Chloride 0.9% 250 ML 250 ML IVPB SCH (15:40)
[2023-03-15] MEDS: Ibuprofen 600 MG TAB PO PRN (18:53)
[2023-03-16 04:19] LABS: Hematocrit 24.3 % (42.0-52.0); Hemoglobin 7.3 g/dL (14.0-18.0); Manual Diff?? YES; Mean Corpuscular Hemoglobin 29.8 pg (27.0-31.0); Mean Corpuscular Volume 99.2 fl (78.0-98.0); Platelet Count 517 10x3/uL (130-400); RBC Distribution Width 16.1 % (11.5-14.5); Red Blood Cell (RBC) Count 2.45 mill/uL (4.70-6.10); White Blood Cell (WBC) Count 9.5 10x3/uL (4.8-10.8)
[2023-03-16 04:26] LABS: Delete Auto Diff?? YES
[2023-03-16 04:46] LABS: ALT (SGPT) 61 U/L (8-55); AST (SGOT) 72 U/L (5-34); Albumin 2.4 g/dL (3.4-4.8); Alkaline Phosphatase 117 U/L (40-110); Anion Gap 14 mmol/L (10-20); BUN (Urea Nitrogen) 37 mg/dL (8.4-25.7); Bilirubin, Total 0.9 mg/dL (0.2-1.2); Calc. Creatinine Clearance 82 mL/min (70-130); Calcium 8.1 mg/dL (7.8-10.44); Carbon Dioxide 25 mmol/L (23-31); Chloride 115 mmol/L (98-107); Estimated GFR 94; Globulin 2.8 g/dL (2.4-3.5); Glucose 113 mg/dL (83-110); Potassium 3.4 mmol/L (3.5-5.1); Protein, Total 5.2 g/dL (5.8-8.1)
[2023-03-16 04:49] LABS: Sodium 151 mmol/L (136-145)
[2023-03-16 05:12] LABS: Band 15 % (5-11); CellaVision Operator ID lab.abc; Hypochromia SLIGHT = 6-15 cells HPF (0-5); Large Platelets 7.1 % (0-5); Lymphocytes 3 % (21-51); Monocytes 1 % (0-10); Neutrophil 79 % (42-75); Platelet Adequacy Comment Platelets Increased; Polychromasia SLIGHT = 2-3 cells HPF (0-2); Smudge Cells 23.2 %; Total Cell Count 99
[2023-03-16] MEDS: Levothyroxine Sodium 75 MCG TAB PER TUBE SCH (06:00)
[2023-03-16] MEDS: Dextrose 5% in Water 1,000 ML IV SCH (06:17)
[2023-03-16 08:06] LABS: Phosphorus 4.1 mg/dL (2.3-4.7)
[2023-03-16] MEDS: Midazolam HCl 2 mg/2 ml Vial SLOW IVP PRN (09:47)
[2023-03-16] MEDS: Acetylcysteine (MUCOMYST) 200 MG/ML (10 ML VIAL) NEB SCH (10:10)
[2023-03-16] MEDS: Enoxaparin 40 MG (0.4 mL) SYRINGE SC SCH (10:16)
[2023-03-16 12:39] LABS: Anion Gap 11 mmol/L (10-20); BUN (Urea Nitrogen) 34 mg/dL (8.4-25.7); Calc. Creatinine Clearance 85 mL/min (70-130); Calcium 8.3 mg/dL (7.8-10.44); Carbon Dioxide 27 mmol/L (23-31); Chloride 115 mmol/L (98-107); Estimated GFR 95; Glucose 133 mg/dL (83-110); Potassium 3.3 mmol/L (3.5-5.1); Sodium 150 mmol/L (136-145)
[2023-03-16] MEDS: Acetylcysteine 10% 100 MG/ML (30 ml) SOLN FS SCH (13:13)
[2023-03-16] MEDS: Diazepam 10 MG/2 ML SYRINGE IVP PRN (13:16)
[2023-03-16] MEDS: Potassium ACETATE 40 MEQ in Sodium Chloride 0.9% 250 ML 250 ML IV SCH (16:32)
[2023-03-16] MEDS: Diazepam 5 MG TAB PER TUBE SCH (20:44)
[2023-03-16] MEDS: Albumin 25% 25 GM (100 mL) BOT IVPB SCH (23:37)
[2023-03-17 04:07] LABS: #Basophils 0.1 thou/uL (0.0-0.2); #Eosinphils 0.3 thou/uL (0.0-0.7); #Monocytes 0.4 thou/uL (0.11-0.59); #Neutrophils 9.7 thou/uL (1.40-6.50); %Basophils 0.4 % (0.0-1.0); %Eosinophils 2.1 % (0.0-10.0); %Lymphocytes 8.2 % (21.0-51.0); %Monocytes 3.7 % (0.0-10.0); %Neutrophils 83.1 % (42.0-75.0); Hematocrit 25.9 % (42.0-52.0); Hemoglobin 7.5 g/dL (14.0-18.0); Mean Platelet Volume 10.5 fL (7.4-10.4); RBC Distribution Width 16.4 % (11.5-14.5); White Blood Cell (WBC) Count 11.7 10x3/uL (4.8-10.8)
[2023-03-17 04:30] LABS: ALT (SGPT) 72 U/L (8-55); AST (SGOT) 106 U/L (5-34); Albumin 2.8 g/dL (3.4-4.8); Alkaline Phosphatase 124 U/L (40-110); Anion Gap 14 mmol/L (10-20); BUN (Urea Nitrogen) 30 mg/dL (8.4-25.7); Bilirubin, Total 1.2 mg/dL (0.2-1.2); Calc. Creatinine Clearance 71 mL/min (70-130); Calcium 8.4 mg/dL (7.8-10.44); Carbon Dioxide 29 mmol/L (23-31); Chloride 111 mmol/L (98-107); Estimated GFR 86; Glucose 137 mg/dL (83-110); Potassium 3.6 mmol/L (3.5-5.1); Protein, Total 5.8 g/dL (5.8-8.1); Sodium 150 mmol/L (136-145)
[2023-03-17 04:59] LABS: Manual Diff?? NO; Mean Corpuscular Volume 103.6 fl (78.0-98.0)
[2023-03-17 05:00] LABS: Platelet Count 645 10x3/uL (130-400)
[2023-03-17 09:58] LABS: Actual Bicarbonate (HCO3a) 28.8 mEq/L (22-28); Analyzer IN Cardio ER; Base Excess (BEa) 2.8 mEq/L (-2.0 to +3.0); Calcium, Ionized (arterial) 1.16 mmol/L (1.12-1.30); Carboxyhemoglobin (COHb) 1.2 gm% (0.0-3.0); Hematocrit-ABG 23 % (42.0-52.0); Hemoglobin (Hb) 7.9 g/dL (14.0-18.0); Potassium - ABG Lab 3.57 mmol/L (3.70-5.30); pH, Arterial 7.353 (7.35-7.45)
[2023-03-17 10:07] LABS: O2 Tension (PaO2), arterial 55.2 mmHg (> 70.0); Puncture Site RRA
[2023-03-17] MEDS: Enoxaparin 40 MG (0.4 mL) SYRINGE SC SCH (10:35)
[2023-03-17] MEDS: Cefepime 2 GM in Sodium Chloride 0.9% 100 ML IVPB SCH (21:32)
[2023-03-17 21:37] LABS: Magnesium 2.3 mg/dL (1.6-2.6)
[2023-03-18 01:28] LABS: Vancomycin, Trough 25.4 ug/mL
[2023-03-18] MEDS: Acetylcysteine 10% 100 MG/ML (30 ml) SOLN INH SCH (02:03)
[2023-03-18 05:47] LABS: Hemoglobin 7.1 g/dL (14.0-18.0); Manual Diff?? YES; Mean Corpuscular HGB CONC 28.4 g/dL (32.0-36.0); Mean Corpuscular Hemoglobin 30.2 pg (27.0-31.0); Mean Corpuscular Volume 106.4 fl (78.0-98.0); Mean Platelet Volume 10.3 fL (7.4-10.4); Platelet Count 532 10x3/uL (130-400); RBC Distribution Width 16.5 % (11.5-14.5); Red Blood Cell (RBC) Count 2.35 mill/uL (4.70-6.10); White Blood Cell (WBC) Count 11.1 10x3/uL (4.8-10.8)
[2023-03-18 05:48] LABS: Delete Auto Diff?? YES
[2023-03-18] MEDS: Vancomycin HCl 750 MG in Sodium Chloride 0.9% 250 ML 250 ML IVPB SCH (05:55)
[2023-03-18 06:10] LABS: Band 9 % (5-11); CellaVision Operator ID lab.abc; Eosinophils 2 % (0-10); Hypochromia SLIGHT = 6-15 cells HPF (0-5); Lymphocytes 7 % (21-51); Monocytes 2 % (0-10); Myelocyte 1 % (0-0); Neutrophil 77 % (42-75); Nucleated RBC (Manual Ct) 1 % (0); Plasma Cells 1 % (0-0); Platelet Adequacy Comment Platelets Increased; Polychromasia SLIGHT = 2-3 cells HPF (0-2); Total Cell Count 100
[2023-03-18 06:14] LABS: ALT (SGPT) 49 U/L (8-55); AST (SGOT) 53 U/L (5-34); Albumin 3.5 g/dL (3.4-4.8); Alkaline Phosphatase 103 U/L (40-110); Anion Gap 15 mmol/L (10-20); BUN (Urea Nitrogen) 31 mg/dL (8.4-25.7); Bilirubin, Total 1.3 mg/dL (0.2-1.2); Calc. Creatinine Clearance 63 mL/min (70-130); Calcium 8.8 mg/dL (7.8-10.44); Carbon Dioxide 26 mmol/L (23-31); Chloride 111 mmol/L (98-107); Estimated GFR 69; Globulin 2.7 g/dL (2.4-3.5); Glucose 116 mg/dL (83-110); Potassium 3.5 mmol/L (3.5-5.1); Protein, Total 6.2 g/dL (5.8-8.1); Sodium 148 mmol/L (136-145)
[2023-03-18 07:22] LABS: Actual Bicarbonate (HCO3a) 29.3 mEq/L (22-28); Base Excess (BEa) 1.3 mEq/L (-2.0 to +3.0); Hematocrit-ABG 23 % (42.0-52.0); Hemoglobin (Hb) 7.8 g/dL (14.0-18.0); O2 Tension (PaO2), arterial 97.2 mmHg (> 70.0); Potassium - ABG Lab 3.54 mmol/L (3.70-5.30); pH, Arterial 7.235 (7.35-7.45)
[2023-03-18 07:50] LABS: Phosphorus 4.2 mg/dL (2.3-4.7)
[2023-03-18 07:57] LABS: CO2 Tension 70.8 mmHg (35.0-45.0); Puncture Site RRA
[2023-03-18] MEDS: Potassium Phosphate 30 MMOL in Sodium Chloride 0.9% 250 ML 250 ML IVPB SCH (09:46)
[2023-03-18 19:39] LABS: Potassium 3.6 mmol/L (3.5-5.1)
[2023-03-18] MEDS: Cefepime 1 GM in Sodium Chloride 0.9% 100 ML IVPB SCH (21:11)
[2023-03-19] MEDS: Activase 2 MG VIAL CATH SCH (04:18)
[2023-03-19] MEDS: Sterile Water 10 ML VIAL IVP SCH (05:39)
[2023-03-19 05:43] LABS: Hematocrit 22.3 % (42.0-52.0); Hemoglobin 6.6 g/dL (14.0-18.0); Manual Diff?? YES; Mean Corpuscular HGB CONC 29.6 g/dL (32.0-36.0); Mean Corpuscular Hemoglobin 30.3 pg (27.0-31.0); Mean Platelet Volume 10.4 fL (7.4-10.4); Platelet Count 511 10x3/uL (130-400); RBC Distribution Width 16.1 % (11.5-14.5); Red Blood Cell (RBC) Count 2.18 mill/uL (4.70-6.10); White Blood Cell (WBC) Count 9.5 10x3/uL (4.8-10.8)
[2023-03-19 06:01] LABS: Delete Auto Diff?? YES; Mean Corpuscular Volume 102.3 fl (78.0-98.0)
[2023-03-19 06:05] LABS: ALT (SGPT) 37 U/L (8-55); AST (SGOT) 40 U/L (5-34); Albumin 2.9 g/dL (3.4-4.8); Alkaline Phosphatase 105 U/L (40-110); Anion Gap 10 mmol/L (10-20); BUN (Urea Nitrogen) 32 mg/dL (8.4-25.7); Bilirubin, Total 0.9 mg/dL (0.2-1.2); Calc. Creatinine Clearance 64 mL/min (70-130); Calcium 8.4 mg/dL (7.8-10.44); Carbon Dioxide 27 mmol/L (23-31); Chloride 110 mmol/L (98-107); Estimated GFR 67; Globulin 2.6 g/dL (2.4-3.5); Glucose 106 mg/dL (83-110); Potassium 3.4 mmol/L (3.5-5.1); Protein, Total 5.5 g/dL (5.8-8.1); Sodium 144 mmol/L (136-145)
[2023-03-19] MEDS ORDERED: EPINEPHrine 1 MG/ML VIAL ONE (06:39)
[2023-03-19] MEDS ORDERED: Bupivacaine 0.25% HCL 30 ML VIAL ONE (06:39)
[2023-03-19 06:44] LABS: Anisocytosis SLIGHT = 6-15 cells HPF (0-5); Band 12 % (5-11); CellaVision Operator ID LAB.JMM; Eosinophils 5 % (0-10); Hypochromia SLIGHT = 6-15 cells HPF (0-5); Lymphocytes 8 % (21-51); Metamyelocyte 1 % (0-0); Monocytes 3 % (0-10); Neutrophil 70 % (42-75); Nucleated RBC (Manual Ct) 1 % (0); Platelet Adequacy Comment Platelets Increased; Polychromasia MODERATE = 3-4 cells HPF (0-2); Total Cell Count 100
[2023-03-19] MEDS ORDERED: PROPOFOL 20 ML ONE (07:11)
[2023-03-19] MEDS ORDERED: PHENYLEPHRINE-NS 100 MCG/ML 10 ML SYRINGE ONE (07:11)
[2023-03-19] MEDS ORDERED: Rocuronium Bromide 10 MG/ML (10ML VIAL) ONE (07:11)
[2023-03-19] MEDS ORDERED: Midazolam HCl 2 mg/2 ml Vial ONE (07:11)
[2023-03-19] MEDS ORDERED: ePHEDrine Sulfate 50 MG/10 ML VIAL ONE (07:14)
[2023-03-19] MEDS: Potassium Chloride 40 MEQ in Premix 1 BAG IVPB SCH (07:39)
[2023-03-19 07:43] LABS: Actual Bicarbonate (HCO3a) 25.2 mEq/L (22-28); Base Excess (BEa) 0.3 mEq/L (-2.0 to +3.0); CO2 Tension 42.1 mmHg (35.0-45.0); Calcium, Ionized (arterial) 1.14 mmol/L (1.12-1.30); Hematocrit-ABG 21 % (42.0-52.0); O2 Tension (PaO2), arterial 65.8 mmHg (> 70.0); Potassium - ABG Lab 3.07 mmol/L (3.70-5.30); pH, Arterial 7.395 (7.35-7.45)
[2023-03-19 07:44] LABS: ALV-art Gradient 202.425 mmHg (0-20); Puncture Site RRA
[2023-03-19] MEDS ORDERED: Albuterol HFA (OR) 200 PUFF INH ONE (08:25)
[2023-03-19] MEDS ORDERED: Vancomycin HCl 750 MG in Sodium Chloride 0.9% 250 ML 250 ML IVPB SCH (11:45)
[2023-03-19] MEDS: Furosemide 40 MG (4 mL) VIAL IVP SCH (12:14)
[2023-03-19] MEDS ORDERED: Polyethylene Glycol OPTH DROP 15 ML BOT EA EYE PRN (12:48)
[2023-03-19] MEDS: Dextrose 5% in Water 1,000 ML IV SCH (14:24)
[2023-03-19] MEDS: SYSTANE 0.3-0.4% EYE DROPS (30 ML) EA EYE PRN (16:33)
[2023-03-20 04:34] LABS: Hematocrit 24.5 % (42.0-52.0); Hemoglobin 7.5 g/dL (14.0-18.0); Manual Diff?? YES; Mean Corpuscular HGB CONC 30.6 g/dL (32.0-36.0); Mean Corpuscular Hemoglobin 30.1 pg (27.0-31.0); Mean Platelet Volume 10.3 fL (7.4-10.4); Platelet Count 528 10x3/uL (130-400); RBC Distribution Width 16.7 % (11.5-14.5); Red Blood Cell (RBC) Count 2.49 mill/uL (4.70-6.10); White Blood Cell (WBC) Count 10.8 10x3/uL (4.8-10.8)
[2023-03-20 04:47] LABS: Delete Auto Diff?? YES; Mean Corpuscular Volume 98.4 fl (78.0-98.0)
[2023-03-20 05:03] LABS: ALT (SGPT) 38 U/L (8-55); AST (SGOT) 39 U/L (5-34); Albumin 2.6 g/dL (3.4-4.8); Alkaline Phosphatase 123 U/L (40-110); Anion Gap 12 mmol/L (10-20); BUN (Urea Nitrogen) 35 mg/dL (8.4-25.7); Calc. Creatinine Clearance 60 mL/min (70-130); Calcium 8.4 mg/dL (7.8-10.44); Carbon Dioxide 28 mmol/L (23-31); Chloride 108 mmol/L (98-107); Estimated GFR 65; Globulin 2.9 g/dL (2.4-3.5); Glucose 110 mg/dL (83-110); Potassium 3.2 mmol/L (3.5-5.1); Protein, Total 5.5 g/dL (5.8-8.1); Sodium 145 mmol/L (136-145)
[2023-03-20 05:54] LABS: CellaVision Operator ID lab.abc; Eosinophils 1 % (0-10); Large Platelets 4.9 % (0-5); Lymphocytes 9 % (21-51); Monocytes 7 % (0-10); Myelocyte 1 % (0-0); Neutrophil 81 % (42-75); Nucleated RBC (Manual Ct) 1 % (0); Platelet Adequacy Comment Platelets Increased; Polychromasia SLIGHT = 2-3 cells HPF (0-2); Smudge Cells 11.8 %; Total Cell Count 102
[2023-03-20] MEDS: Potassium Bicarbonate/Cit Ac 20 MEQ TAB PER TUBE SCH (07:59)
[2023-03-20 08:23] LABS: Actual Bicarbonate (HCO3a) 28.9 mEq/L (22-28); Base Excess (BEa) 4.4 mEq/L (-2.0 to +3.0); CO2 Tension 43.3 mmHg (35.0-45.0); Calcium, Ionized (arterial) 1.09 mmol/L (1.12-1.30); Carboxyhemoglobin (COHb) 1.7 gm% (0.0-3.0); Hematocrit-ABG 24 % (42.0-52.0); Hemoglobin (Hb) 8.1 g/dL (14.0-18.0); O2 Tension (PaO2), arterial 62.9 mmHg (> 70.0); Potassium - ABG Lab 3.26 mmol/L (3.70-5.30); pH, Arterial 7.443 (7.35-7.45)
[2023-03-20 08:24] LABS: Puncture Site RRA
[2023-03-20 08:25] LABS: ALV-art Gradient 203.825 mmHg (0-20)
[2023-03-20 08:30] LABS: Magnesium 2.3 mg/dL (1.6-2.6)
[2023-03-20] MEDS ORDERED: Furosemide 40 MG (4 mL) VIAL IVP SCH (09:00)
[2023-03-20] MEDS: fentaNYL 100 mcg/hour Patch TD SCH (10:00)
[2023-03-20] MEDS: Potassium Chloride 40 MEQ in Premix 1 BAG IVPB SCH (10:28)
[2023-03-20] MEDS: Acetaminophen 650 MG/20.3 ML UDCUP PER TUBE SCH (11:34)
[2023-03-20] MEDS: Furosemide 100 MG (10 mL) VIAL SLOW IVP SCH (11:35)
[2023-03-20] MEDS: Gabapentin 100 MG CAP PO SCH (15:05)
[2023-03-20] MEDS: Dextrose 5% in Water 1,000 ML IV SCH (22:18)
[2023-03-21] MEDS ORDERED: Propofol 1,000 MG/100 ML VIAL IV PRN (03:33)
[2023-03-21] MEDS ORDERED: Propofol BOLUS 1,000 MG/100 ML VIAL IV PRN (04:15)
[2023-03-21 06:46] LABS: #Basophils 0.1 thou/uL (0.0-0.2); #Eosinphils 0.2 thou/uL (0.0-0.7); #Monocytes 0.7 thou/uL (0.11-0.59); #Neutrophils 9.8 thou/uL (1.40-6.50); %Basophils 0.5 % (0.0-1.0); %Eosinophils 1.9 % (0.0-10.0); %Lymphocytes 7.5 % (21.0-51.0); %Monocytes 5.3 % (0.0-10.0); %Neutrophils 80.3 % (42.0-75.0); Hematocrit 26.1 % (42.0-52.0); Hemoglobin 8.2 g/dL (14.0-18.0); Mean Corpuscular HGB CONC 31.4 g/dL (32.0-36.0); Mean Corpuscular Hemoglobin 30.1 pg (27.0-31.0); Mean Platelet Volume 10.1 fL (7.4-10.4); Platelet Count 553 10x3/uL (130-400); Red Blood Cell (RBC) Count 2.72 mill/uL (4.70-6.10); White Blood Cell (WBC) Count 12.2 10x3/uL (4.8-10.8)
[2023-03-21 07:13] LABS: ALT (SGPT) 38 U/L (8-55); AST (SGOT) 44 U/L (5-34); Albumin 2.7 g/dL (3.4-4.8); Alkaline Phosphatase 139 U/L (40-110); Anion Gap 17 mmol/L (10-20); BUN (Urea Nitrogen) 41 mg/dL (8.4-25.7); Bilirubin, Total 0.9 mg/dL (0.2-1.2); Calc. Creatinine Clearance 59 mL/min (70-130); Calcium 8.7 mg/dL (7.8-10.44); Carbon Dioxide 27 mmol/L (23-31); Chloride 106 mmol/L (98-107); Estimated GFR 65; Globulin 3.4 g/dL (2.4-3.5); Glucose 136 mg/dL (83-110); Potassium 3.4 mmol/L (3.5-5.1); Protein, Total 6.1 g/dL (5.8-8.1); Sodium 147 mmol/L (136-145)
[2023-03-21] MEDS: Potassium Chloride 20 MEQ in Premix 1 BAG IVPB SCH (08:48)
[2023-03-21] MEDS: Potassium Chloride 20 MEQ TAB PO SCH (08:48)
[2023-03-22 04:30] LABS: #Basophils 0.1 thou/uL (0.0-0.2); #Eosinphils 0.1 thou/uL (0.0-0.7); #Monocytes 0.9 thou/uL (0.11-0.59); #Neutrophils 9.4 thou/uL (1.40-6.50); %Basophils 0.4 % (0.0-1.0); %Eosinophils 0.5 % (0.0-10.0); %Lymphocytes 7.3 % (21.0-51.0); %Monocytes 7.4 % (0.0-10.0); %Neutrophils 82.6 % (42.0-75.0); Hematocrit 25.5 % (42.0-52.0); Mean Corpuscular HGB CONC 31.4 g/dL (32.0-36.0); Mean Corpuscular Hemoglobin 29.6 pg (27.0-31.0); Mean Corpuscular Volume 94.4 fl (78.0-98.0); Mean Platelet Volume 10.1 fL (7.4-10.4); Platelet Count 537 10x3/uL (130-400); RBC Distribution Width 15.5 % (11.5-14.5); White Blood Cell (WBC) Count 11.4 10x3/uL (4.8-10.8)
[2023-03-22 04:53] LABS: ALT (SGPT) 33 U/L (8-55); AST (SGOT) 41 U/L (5-34); Albumin 2.9 g/dL (3.4-4.8); Alkaline Phosphatase 132 U/L (40-110); Anion Gap 15 mmol/L (10-20); BUN (Urea Nitrogen) 42 mg/dL (8.4-25.7); Bilirubin, Total 1.1 mg/dL (0.2-1.2); Calc. Creatinine Clearance 62 mL/min (70-130); Calcium 8.9 mg/dL (7.8-10.44); Carbon Dioxide 33 mmol/L (23-31); Chloride 105 mmol/L (98-107); Estimated GFR 69; Globulin 3.6 g/dL (2.4-3.5); Glucose 130 mg/dL (83-110); Protein, Total 6.5 g/dL (5.8-8.1); Sodium 150 mmol/L (136-145)
[2023-03-22] MEDS: Potassium Chloride 20 MEQ in Premix 1 BAG IVPB SCH ×2 (07:21→09:24)
[2023-03-22 11:49] LABS: Actual Bicarbonate (HCO3a) 18.6 mEq/L (22-28); Analyzer IN Cardio OR; Base Excess (BEa) -6.6 mEq/L (-2.0 to +3.0); Calcium, Ionized (arterial) 1.13 mmol/L (1.12-1.30); Carboxyhemoglobin (COHb) 0.4 gm% (0.0-3.0); Hematocrit-ABG 30 % (42.0-52.0); Hemoglobin (Hb) 10.3 g/dL (14.0-18.0); O2 Tension (PaO2), arterial 268.3 mmHg (> 70.0); Potassium - ABG Lab 3.81 mmol/L (3.70-5.30); pH, Arterial 7.331 (7.35-7.45)
[2023-03-22 11:49] LABS: Actual Bicarbonate (HCO3a) 19.6 mEq/L (22-28); Analyzer IN Cardio OR; Base Excess (BEa) -4.9 mEq/L (-2.0 to +3.0); CO2 Tension 33.8 mmHg (35.0-45.0); Calcium, Ionized (arterial) 1.14 mmol/L (1.12-1.30); Carboxyhemoglobin (COHb) 0.8 gm% (0.0-3.0); Hematocrit-ABG 25 % (42.0-52.0); Hemoglobin (Hb) 8.4 g/dL (14.0-18.0); O2 Tension (PaO2), arterial 333.4 mmHg (> 70.0); Potassium - ABG Lab 3.12 mmol/L (3.70-5.30); Puncture Site Arterial Line; pH, Arterial 7.381 (7.35-7.45)
[2023-03-22 11:50] LABS: Puncture Site Arterial Line
[2023-03-22 11:52] LABS: Actual Bicarbonate (HCO3a) 21.4 mEq/L (22-28); Analyzer IN Cardio OR; CO2 Tension 40.3 mmHg (35.0-45.0); Calcium, Ionized (arterial) 1.02 mmol/L (1.12-1.30); Carboxyhemoglobin (COHb) 0.9 gm% (0.0-3.0); Hematocrit-ABG 23 % (42.0-52.0); Hemoglobin (Hb) 7.8 g/dL (14.0-18.0); O2 Tension (PaO2), arterial 123.1 mmHg (> 70.0); Potassium - ABG Lab 3.28 mmol/L (3.70-5.30); pH, Arterial 7.343 (7.35-7.45)
[2023-03-22 11:53] LABS: Puncture Site Arterial Line
[2023-03-22] MEDS: Potassium Chloride 20 MEQ TAB PO SCH (12:55)
[2023-03-22 17:14] LABS: Anion Gap 16 mmol/L (10-20); BUN (Urea Nitrogen) 43 mg/dL (8.4-25.7); Calc. Creatinine Clearance 56 mL/min (70-130); Calcium 9.1 mg/dL (7.8-10.44); Carbon Dioxide 35 mmol/L (23-31); Chloride 102 mmol/L (98-107); Estimated GFR 68; Glucose 128 mg/dL (83-110); Sodium 150 mmol/L (136-145)
[2023-03-22 21:19] LABS: Anion Gap 17 mmol/L (10-20); BUN (Urea Nitrogen) 43 mg/dL (8.4-25.7); Calc. Creatinine Clearance 58 mL/min (70-130); Calcium 9.1 mg/dL (7.8-10.44); Carbon Dioxide 34 mmol/L (23-31); Chloride 102 mmol/L (98-107); Estimated GFR 72; Glucose 125 mg/dL (83-110); Sodium 150 mmol/L (136-145)
[2023-03-22] MEDS: Potassium Bicarbonate/Cit Ac 20 MEQ TAB PER TUBE SCH (22:13)
[2023-03-23 04:58] LABS: Hematocrit 25.8 % (42.0-52.0); Hemoglobin 8.2 g/dL (14.0-18.0); Manual Diff?? YES; Mean Corpuscular HGB CONC 31.8 g/dL (32.0-36.0); Mean Corpuscular Volume 94.5 fl (78.0-98.0); Mean Platelet Volume 10.1 fL (7.4-10.4); Platelet Count 525 10x3/uL (130-400); RBC Distribution Width 15.2 % (11.5-14.5); Red Blood Cell (RBC) Count 2.73 mill/uL (4.70-6.10); White Blood Cell (WBC) Count 11.6 10x3/uL (4.8-10.8)
[2023-03-23 05:08] LABS: Delete Auto Diff?? YES
[2023-03-23 05:29] LABS: ALT (SGPT) 53 U/L (8-55); AST (SGOT) 73 U/L (5-34); Albumin 2.9 g/dL (3.4-4.8); Alkaline Phosphatase 137 U/L (40-110); BUN (Urea Nitrogen) 47 mg/dL (8.4-25.7); Bilirubin, Total 1.1 mg/dL (0.2-1.2); Calc. Creatinine Clearance 59 mL/min (70-130); Calcium 9.3 mg/dL (7.8-10.44); Estimated GFR 79; Glucose 130 mg/dL (83-110); Protein, Total 6.9 g/dL (5.8-8.1)
[2023-03-23 05:38] LABS: Anion Gap 18 mmol/L (10-20); Carbon Dioxide 33 mmol/L (23-31); Chloride 101 mmol/L (98-107); Potassium 3.2 mmol/L (3.5-5.1); Sodium 149 mmol/L (136-145)
[2023-03-23 05:58] LABS: Anisocytosis SLIGHT = 6-15 cells HPF (0-5); Band 6 % (5-11); CellaVision Operator ID lab.dlt; Hypochromia SLIGHT = 6-15 cells HPF (0-5); Large Platelets 9.2 % (0-5); Lymphocytes 4 % (21-51); Monocytes 3 % (0-10); Neutrophil 86 % (42-75); Platelet Adequacy Comment Platelets Increased; Poikilocytosis SLIGHT = 6-15 cells HPF (0-5); Polychromasia SLIGHT = 2-3 cells HPF (0-2); Total Cell Count 98
[2023-03-23] MEDS: Potassium Chloride 20 MEQ in Premix 1 BAG IVPB SCH (06:44)
[2023-03-23] MEDS: Furosemide 40 MG (4 mL) VIAL SLOW IVP SCH (07:43)
[2023-03-23] MEDS ORDERED: VANCOMYCIN IVPB PRN (16:30)
[2023-03-23] MEDS: Vancomycin (BATCH) 1.5 GM in Premix 1 BAG IVPB SCH (16:39)
[2023-03-23 17:34] LABS: Potassium 4.2 mmol/L (3.5-5.1)
[2023-03-24 04:30] LABS: #Basophils 0.1 thou/uL (0.0-0.2); #Eosinphils 0.3 thou/uL (0.0-0.7); #Monocytes 0.8 thou/uL (0.11-0.59); %Basophils 0.4 % (0.0-1.0); %Lymphocytes 8.6 % (21.0-51.0); %Monocytes 6.9 % (0.0-10.0); %Neutrophils 80.4 % (42.0-75.0); Hematocrit 26.1 % (42.0-52.0); Hemoglobin 7.8 g/dL (14.0-18.0); Mean Corpuscular HGB CONC 29.9 g/dL (32.0-36.0); Mean Corpuscular Hemoglobin 29.5 pg (27.0-31.0); Mean Platelet Volume 10.1 fL (7.4-10.4); Platelet Count 472 10x3/uL (130-400); RBC Distribution Width 15.4 % (11.5-14.5); Red Blood Cell (RBC) Count 2.64 mill/uL (4.70-6.10); White Blood Cell (WBC) Count 11.2 10x3/uL (4.8-10.8)
[2023-03-24 04:38] LABS: Mean Corpuscular Volume 98.9 fl (78.0-98.0)
[2023-03-24 04:52] LABS: Phosphorus 3.9 mg/dL (2.3-4.7)
[2023-03-24 05:02] LABS: ALT (SGPT) 92 U/L (8-55); AST (SGOT) 111 U/L (5-34); Alkaline Phosphatase 132 U/L (40-110); Anion Gap 13 mmol/L (10-20); BUN (Urea Nitrogen) 50 mg/dL (8.4-25.7); Bilirubin, Total 0.8 mg/dL (0.2-1.2); Calc. Creatinine Clearance 58 mL/min (70-130); Calcium 8.9 mg/dL (7.8-10.44); Carbon Dioxide 36 mmol/L (23-31); Chloride 102 mmol/L (98-107); Estimated GFR 77; Globulin 3.6 g/dL (2.4-3.5); Glucose 126 mg/dL (83-110); Magnesium 2.3 mg/dL (1.6-2.6); Potassium 3.2 mmol/L (3.5-5.1); Protein, Total 6.6 g/dL (5.8-8.1); Sodium 148 mmol/L (136-145)
[2023-03-24] MEDS: Potassium Chloride 20 MEQ in Premix 1 BAG IVPB SCH (07:14)
[2023-03-24] MEDS: GLYCOPYRROLATE/PF 0.2 MG/ML VIAL SLOW IVP SCH (08:57)
[2023-03-24] MEDS: Vancomycin (BATCH) 1.25 GM in Premix 1 BAG IVPB SCH (16:22)
[2023-03-25 04:16] LABS: #Basophils 0.1 thou/uL (0.0-0.2); #Eosinphils 0.4 thou/uL (0.0-0.7); #Monocytes 1.3 thou/uL (0.11-0.59); #Neutrophils 9.6 thou/uL (1.40-6.50); %Basophils 0.5 % (0.0-1.0); %Eosinophils 3.2 % (0.0-10.0); %Lymphocytes 8.2 % (21.0-51.0); %Monocytes 10.3 % (0.0-10.0); %Neutrophils 77.3 % (42.0-75.0); Hematocrit 27.5 % (42.0-52.0); Hemoglobin 8.5 g/dL (14.0-18.0); Mean Corpuscular HGB CONC 30.9 g/dL (32.0-36.0); Mean Corpuscular Hemoglobin 29.6 pg (27.0-31.0); Mean Platelet Volume 10.5 fL (7.4-10.4); Platelet Count 377 10x3/uL (130-400); RBC Distribution Width 15.3 % (11.5-14.5); Red Blood Cell (RBC) Count 2.87 mill/uL (4.70-6.10); White Blood Cell (WBC) Count 12.4 10x3/uL (4.8-10.8)
[2023-03-25 04:25] LABS: Mean Corpuscular Volume 95.8 fl (78.0-98.0)
[2023-03-25 04:47] LABS: ALT (SGPT) 84 U/L (8-55); AST (SGOT) 71 U/L (5-34); Alkaline Phosphatase 138 U/L (40-110); Anion Gap 19 mmol/L (10-20); BUN (Urea Nitrogen) 52 mg/dL (8.4-25.7); Bilirubin, Total 0.8 mg/dL (0.2-1.2); Calc. Creatinine Clearance 66 mL/min (70-130); Carbon Dioxide 30 mmol/L (23-31); Chloride 102 mmol/L (98-107); Estimated GFR 87; Globulin 3.9 g/dL (2.4-3.5); Glucose 96 mg/dL (83-110); Potassium 3.8 mmol/L (3.5-5.1); Protein, Total 6.9 g/dL (5.8-8.1); Sodium 147 mmol/L (136-145)
[2023-03-25] MEDS: Scopolamine 1 mg/72 hour Patch TD SCH (10:36)
[2023-03-25] MEDS: Polyethylene Glycol 3350 17 GM Packet PO PRN (15:22)
[2023-03-26 03:36] LABS: #Basophils 0.1 thou/uL (0.0-0.2); #Eosinphils 0.4 thou/uL (0.0-0.7); #Monocytes 0.7 thou/uL (0.11-0.59); #Neutrophils 9.1 thou/uL (1.40-6.50); %Basophils 0.5 % (0.0-1.0); %Eosinophils 3.3 % (0.0-10.0); %Lymphocytes 10.8 % (21.0-51.0); %Monocytes 6.3 % (0.0-10.0); %Neutrophils 78.7 % (42.0-75.0); Hematocrit 26.9 % (42.0-52.0); Hemoglobin 8.3 g/dL (14.0-18.0); Mean Corpuscular HGB CONC 30.9 g/dL (32.0-36.0); Mean Corpuscular Hemoglobin 29.2 pg (27.0-31.0); Mean Corpuscular Volume 94.7 fl (78.0-98.0); Mean Platelet Volume 10.4 fL (7.4-10.4); RBC Distribution Width 15.4 % (11.5-14.5); Red Blood Cell (RBC) Count 2.84 mill/uL (4.70-6.10); White Blood Cell (WBC) Count 11.6 10x3/uL (4.8-10.8)
[2023-03-26 03:44] LABS: Platelet Count 502 10x3/uL (130-400)
[2023-03-26 04:06] LABS: ALT (SGPT) 77 U/L (8-55); AST (SGOT) 60 U/L (5-34); Albumin 3.1 g/dL (3.4-4.8); Alkaline Phosphatase 139 U/L (40-110); Anion Gap 15 mmol/L (10-20); BUN (Urea Nitrogen) 50 mg/dL (8.4-25.7); Bilirubin, Total 0.7 mg/dL (0.2-1.2); Calc. Creatinine Clearance 71 mL/min (70-130); Calcium 9.4 mg/dL (7.8-10.44); Carbon Dioxide 37 mmol/L (23-31); Chloride 99 mmol/L (98-107); Estimated GFR 92; Glucose 125 mg/dL (83-110); Potassium 3.3 mmol/L (3.5-5.1); Protein, Total 7.1 g/dL (5.8-8.1); Sodium 148 mmol/L (136-145)
[2023-03-26] MEDS: Potassium Bicarbonate/Cit Ac 20 MEQ TAB PER TUBE SCH ×2 (06:29→10:15)
[2023-03-26] MEDS ORDERED: Potassium Chloride 20 MEQ TAB PO SCH (08:00)
[2023-03-26 13:48] LABS: Potassium 3.9 mmol/L (3.5-5.1)
[2023-03-27 04:26] LABS: #Basophils 0.1 thou/uL (0.0-0.2); #Eosinphils 0.5 thou/uL (0.0-0.7); #Monocytes 0.7 thou/uL (0.11-0.59); %Basophils 0.7 % (0.0-1.0); %Eosinophils 4.2 % (0.0-10.0); %Lymphocytes 13.2 % (21.0-51.0); %Monocytes 6.5 % (0.0-10.0); %Neutrophils 74.7 % (42.0-75.0); Hematocrit 26.3 % (42.0-52.0); Hemoglobin 8.1 g/dL (14.0-18.0); Mean Corpuscular HGB CONC 30.8 g/dL (32.0-36.0); Mean Corpuscular Hemoglobin 28.7 pg (27.0-31.0); Mean Corpuscular Volume 93.3 fl (78.0-98.0); Mean Platelet Volume 10.5 fL (7.4-10.4); Platelet Count 493 10x3/uL (130-400); RBC Distribution Width 15.7 % (11.5-14.5); Red Blood Cell (RBC) Count 2.82 mill/uL (4.70-6.10); White Blood Cell (WBC) Count 10.7 10x3/uL (4.8-10.8)
[2023-03-27 04:58] LABS: ALT (SGPT) 62 U/L (8-55); AST (SGOT) 42 U/L (5-34); Alkaline Phosphatase 140 U/L (40-110); BUN (Urea Nitrogen) 49 mg/dL (8.4-25.7); Bilirubin, Total 0.6 mg/dL (0.2-1.2); Calc. Creatinine Clearance 66 mL/min (70-130); Calcium 9.2 mg/dL (7.8-10.44); Estimated GFR 92; Glucose 111 mg/dL (83-110)
[2023-03-27 05:09] LABS: Anion Gap 13 mmol/L (10-20); Carbon Dioxide 37 mmol/L (23-31); Chloride 98 mmol/L (98-107); Potassium 3.4 mmol/L (3.5-5.1); Sodium 145 mmol/L (136-145)
[2023-03-27] MEDS: Potassium Bicarbonate/Cit Ac 20 MEQ TAB PER TUBE SCH (08:18)
[2023-03-27] MEDS: Potassium Chloride 20 MEQ in Premix 1 BAG IVPB SCH ×2 (08:20→10:29)
[2023-03-27] MEDS ORDERED: fentaNYL 75 mcg/hour Patch TD SCH (10:00)
[2023-03-27 17:06] LABS: Potassium 4.6 mmol/L (3.5-5.1)
[2023-03-28 04:29] LABS: ALT (SGPT) 55 U/L (8-55); AST (SGOT) 40 U/L (5-34); Albumin 3.2 g/dL (3.4-4.8); Alkaline Phosphatase 152 U/L (40-110); Anion Gap 18 mmol/L (10-20); BUN (Urea Nitrogen) 43 mg/dL (8.4-25.7); Bilirubin, Total 0.7 mg/dL (0.2-1.2); Calc. Creatinine Clearance 66 mL/min (70-130); Calcium 9.7 mg/dL (7.8-10.44); Carbon Dioxide 26 mmol/L (23-31); Chloride 105 mmol/L (98-107); Estimated GFR 91; Globulin 4.5 g/dL (2.4-3.5); Glucose 110 mg/dL (83-110); Potassium 4.5 mmol/L (3.5-5.1); Protein, Total 7.7 g/dL (5.8-8.1); Sodium 144 mmol/L (136-145)
[2023-03-28 06:04] VITALS: BMI 19.5
[2023-03-28] MEDS: traMADol HCl 50 MG TAB PO PRN ×2 (12:40→21:39)
[2023-03-28] MEDS: Diazepam 5 MG TAB PER TUBE PRN (21:38)
[2023-03-29 08:52] LABS: ALT (SGPT) 50 U/L (8-55); AST (SGOT) 33 U/L (5-34); Albumin 3.5 g/dL (3.4-4.8); Alkaline Phosphatase 158 U/L (40-110); Anion Gap 15 mmol/L (10-20); BUN (Urea Nitrogen) 44 mg/dL (8.4-25.7); Bilirubin, Total 0.7 mg/dL (0.2-1.2); Calc. Creatinine Clearance 66 mL/min (70-130); Calcium 9.8 mg/dL (7.8-10.44); Carbon Dioxide 31 mmol/L (23-31); Chloride 102 mmol/L (98-107); Estimated GFR 92; Globulin 4.5 g/dL (2.4-3.5); Glucose 105 mg/dL (83-110); Potassium 4.5 mmol/L (3.5-5.1); Sodium 143 mmol/L (136-145)
[2023-03-29 10:49] VITALS: BP 138/89
[2023-03-29 17:23] VITALS: TEMP 97.7
== END 2023-03-29 18:47 | DRG 3 ==
LOC: ERS 20:32 → EDBD 20:32 → CCU 22:33 → IMCU/EMU 03-28 18:50
PROVIDERS: ADMIT Surgery; ATTEND Surgery
PROC: 06HY33Z Insertion of Infusion Device into Lower Vein, Percutaneous Approach (ICD-10-PCS; principal; 2023-03-03)
PROC: 5A1955Z Respiratory Ventilation, Greater than 96 Consecutive Hours (ICD-10-PCS; 2023-03-03)
PROC: 0QH Lower Bones, Insertion (ICD-10-PCS; 2023-03-04)
PROC: 30233N1 Transfusion of Nonautologous Red Blood Cells into Peripheral Vein, Percutaneous Approach (ICD-10-PCS; 2023-03-04)
PROC: 4A133R1 Monitoring of Arterial Saturation, Peripheral, Percutaneous Approach (ICD-10-PCS; 2023-03-04)
PROC: 3E033XZ Introduction of Vasopressor into Peripheral Vein, Percutaneous Approach (ICD-10-PCS; 2023-03-04)
PROC: 0PSJ04Z Reposition Left Radius with Internal Fixation Device, Open Approach (ICD-10-PCS; 2023-03-06)
PROC: 0PSL04Z Reposition Left Ulna with Internal Fixation Device, Open Approach (ICD-10-PCS; 2023-03-06)
PROC: 0QS906Z Reposition Left Femoral Shaft with Intramedullary Internal Fixation Device, Open Approach (ICD-10-PCS; 2023-03-06)
PROC: 0QSH04Z Reposition Left Tibia with Internal Fixation Device, Open Approach (ICD-10-PCS; 2023-03-06)
PROC: 0SSJ0ZZ Reposition Left Tarsal Joint, Open Approach (ICD-10-PCS; 2023-03-06)
PROC: 0QHM34Z Insertion of Internal Fixation Device into Left Tarsal, Percutaneous Approach (ICD-10-PCS; 2023-03-06)
PROC: 30233J1 Transfusion of Nonautologous Serum Albumin into Peripheral Vein, Percutaneous Approach (ICD-10-PCS; 2023-03-06)
PROC: 0QSG04Z Reposition Right Tibia with Internal Fixation Device, Open Approach (ICD-10-PCS; 2023-03-08)
PROC: 0QSN04Z Reposition Right Metatarsal with Internal Fixation Device, Open Approach (ICD-10-PCS; 2023-03-08)
PROC: 02HV33Z Insertion of Infusion Device into Superior Vena Cava, Percutaneous Approach (ICD-10-PCS; 2023-03-10)
PROC: 0B9D8ZX Drainage of Right Middle Lung Lobe, Via Natural or Artificial Opening Endoscopic, Diagnostic (ICD-10-PCS; 2023-03-11)
PROC: 0BJ08ZZ Inspection of Tracheobronchial Tree, Via Natural or Artificial Opening Endoscopic (ICD-10-PCS; 2023-03-16)
PROC: 0WCQ8ZZ Extirpation of Matter from Respiratory Tract, Via Natural or Artificial Opening Endoscopic (ICD-10-PCS; 2023-03-17)
PROC: 0B110F4 Bypass Trachea to Cutaneous with Tracheostomy Device, Open Approach (ICD-10-PCS; 2023-03-19)
PROC: 0DH63UZ Insertion of Feeding Device into Stomach, Percutaneous Approach (ICD-10-PCS; 2023-03-19)
DX: S72.002B Fracture of unspecified part of neck of left femur, initial encounter for open fracture type I or II (principal); J96.01 Acute respiratory failure with hypoxia; S52.572A Other intraarticular fracture of lower end of left radius, initial encounter for closed fracture; S15.0 Injury of carotid artery of neck; S27.0XXA Traumatic pneumothorax, initial encounter; S12.600A Unspecified displaced fracture of seventh cervical vertebra, initial encounter for closed fracture; S82.242A Displaced spiral fracture of shaft of left tibia, initial encounter for closed fracture; S52.502A Unspecified fracture of the lower end of left radius, initial encounter for closed fracture; S52.602A Unspecified fracture of lower end of left ulna, initial encounter for closed fracture; S82.141A Displaced bicondylar fracture of right tibia, initial encounter for closed fracture; S22.42XA Multiple fractures of ribs, left side, initial encounter for closed fracture; S27.321A Contusion of lung, unilateral, initial encounter; G93.40 Encephalopathy, unspecified; E87.0 Hyperosmolality and hypernatremia; J98.11 Atelectasis; S72.302B Unspecified fracture of shaft of left femur, initial encounter for open fracture type I or II; S92.112A Displaced fracture of neck of left talus, initial encounter for closed fracture; S62.305A Unspecified fracture of fourth metacarpal bone, left hand, initial encounter for closed fracture; S62.307A Unspecified fracture of fifth metacarpal bone, left hand, initial encounter for closed fracture; S62.162A Displaced fracture of pisiform, left wrist, initial encounter for closed fracture; S92.321A Displaced fracture of second metatarsal bone, right foot, initial encounter for closed fracture; S92.331A Displaced fracture of third metatarsal bone, right foot, initial encounter for closed fracture; S92.341A Displaced fracture of fourth metatarsal bone, right foot, initial encounter for closed fracture; E87.8 Other disorders of electrolyte and fluid balance, not elsewhere classified; E88.09 Other disorders of plasma-protein metabolism, not elsewhere classified; T17.990A Other foreign object in respiratory tract, part unspecified in causing asphyxiation, initial encounter; E87.6 Hypokalemia; I95.9 Hypotension, unspecified; V44.5XXA Car driver injured in collision with heavy transport vehicle or bus in traffic accident, initial encounter; S72.144A Nondisplaced intertrochanteric fracture of right femur, initial encounter for closed fracture
CPT/HCPCS: 25605; 26600; 27502; 27752; 27780; 31500; 31624; 36415; 36416; 36430; 36600; 51702; 70450; 70486; 70498; 71045; 71260; 72125; 72170; 74177; 80048; 80053; 80202; 81001; 82805; 83605; 83735; 84100; 84145; 85025; 85610; 85730; 86850; 86900; 86901; 87040; 87070; 87077; 87081; 87149; 87186; 87205; 90471; 90715; 93005; 94002; 94003; 94640; 96365; C1713; C1769; C9113; G0390; J0171; J0665; J0690; J0692; J1650; J1885; J1940; J2060; J2250; J2270; J2272; J2405; J2704; J2997; J3010; J3360; J3370; J3370-JW; J3475; J3480; J3490; J7030; J7050; J7070; J7120; J7608; J7611; J7620; P9016; P9035; P9045; P9047; Q9967; S0028